=== PATIENT | male | born 1945 | race Caucasian/White ===

== ENCOUNTER 2020-11-16 16:00 | Emergency (ER) | payer MEDICARE, BC ==
[2020-11-16 16:31] VITALS: BP 157/92
[2020-11-16] MEDS ORDERED: Sodium Chloride 0.9% 1,000 ML IV ONE (16:44)
[2020-11-16] MEDS ORDERED: Sodium Chloride 0.9% 10 ML Syringe FLUSH PRN (16:44)
--- NOTE | 2020-11-16 16:52 | EDM.PDOC ---
ED HPI GENERAL MEDICAL PROBLEM - General Chief Complaint: Respiratory Problem Stated Complaint: WEAK/SOB Time Seen by Provider: 11/16/20 16:33 Source of Information: Reports: Patient, RN Notes Reviewed History Limitations: Reports: No Limitations - History of Present Illness INITIAL COMMENTS - FREE TEXT/NARRATIVE: Patient is a 75-year-old male who presents to the ED for the evaluation of his weakness, fatigue, body aches, shortness of breath. He states that this has been going on for 3 days. Patient has multiple symptoms of COVID-19, he went to the [facility] and was seen by JENNY Zavala and was sent here for further evaluation. He states that she said his O2 sats were low there. O2 sats are 98% on room air here, he also notes that he does not have a sense of smell or much for taste as well. He has a history of COPD, and does see Aramis Patel has a primary care provider, and Dr. Dee Sheehan at [facility] is a nib inspector. He notes that it has been very hard to "get his air" for the last few days. He has not had any fevers, chills, but has had a cough, shortness of breath, no nausea/vomiting/diarrhea, he has no chest pain. Generalized Pain Score (Numeric/FACES): 5 - Related Data Allergies Allergy/AdvReac Type Severity Reaction Status Date / Time No Known Allergies Allergy Verified 11/16/20 16:31 Home Meds: Home Meds Finasteride [Proscar] 5 mg PO DAILY 08/28/14 [History] Omeprazole 40 mg PO DAILY 08/28/14 [History] Tamsulosin [Flomax] 0.4 mg PO BIDMEALS 08/28/14 [History] buPROPion [Wellbutrin XL] 150 mg PO BID 08/28/14 [History] Acetaminophen/Caffeine [Excedrin Tension Headache] 2 tab PO PRN 07/22/15 [History] Albuterol [Proair HFA] 2 puff INH DAILY 07/22/15 [History] Fluticasone Propionate [Flovent] 1 puff IH BID PRN 07/22/15 [History] Furosemide [Lasix] 20 mg PO DAILY 07/22/15 [History] Guaifenesin/Pseudoephedrne HCl [Mucinex D ER 600-60 mg Tablet] 1 each PO DAILY 07/22/15 [History] Mometasone/Formoterol [Dulera 200-5 MCG] 2 puff IH DAILY 07/22/15 [History] [place]-3 Fatty Acids [Fish Oil] 300 mg PO BID 07/22/15 [History] Polyethylene Glycol 3350 [MiraLAX] 17 g PO DAILY 07/22/15 [History] Hydroxychloroquine [Plaquenil] 200 mg PO BID 08/17/15 [History] Loratadine/Pseudoephedrine [Alavert D-12 Allergy-Sinus] 5 mg PO DAILY 08/17/15 [History] SUMAtriptan [Imitrex] 50 mg PO ASDIRECTED PRN 08/17/15 [History] allopurinoL [Zyloprim] 30 mg PO DAILY 08/17/15 [History] Meloxicam 15 mg PO DAILY #12 tablet 04/15/16 [Rx] Prednisone [IMW: predniSONE] 20 mg PO BID #20 tab 04/15/16 [Rx] oxyCODONE HCl/Acetaminophen [Percocet 5-325 mg Tablet] 1 - 2 each PO Q4H PRN #20 tablet 04/15/16 [Rx] Past Medical History HEENT History: Reports: Hard of Hearing Other HEENT History: Glasses Cardiovascular History: Reports: High Cholesterol, Hypertension Other Cardiovascular History: swelling to legs, on lasix Respiratory History: Reports: COPD Gastrointestinal History: Reports: GERD Genitourinary History: Reports: BPH, Renal Calculus Other Genitourinary History: Difficulty urinating Musculoskeletal History: Reports: Back Pain, Chronic, Gout, RA Psychiatric History: Reports: Depression Other Psychiatric History: on wellbutrin - Past Surgical History HEENT Surgical History: Reports: Tonsillectomy GI Surgical History: Reports: EGD Other GI Surgeries/Procedures: HEMORRHOIDECTOMY Male Surgical History: Reports: Lithotripsy (ESWL) Social & Family History - Family History Family Medical History: No Pertinent Family History - Tobacco Use Tobacco Use Status *Q: Former Tobacco User Years of Tobacco use: 40 Packs/Tins Daily: 1 Used Tobacco, but Quit: Yes Month/Year Tobacco Last Used: 6 years ago - Caffeine Use Caffeine Use: Reports: Coffee - Recreational Drug Use Recreational Drug Use: No - Living Situation & Occupation Living situation: Reports: , Alone Occupation: Retired ED ROS GENERAL - Review of Systems Review Of Systems: Comprehensive ROS is negative, except as noted in HPI. ED EXAM, GENERAL - Physical Exam Exam: See Below Exam Limited By: No Limitations General Appearance: Alert, WD/WN, No Apparent Distress Respiratory/Chest: No Respiratory Distress, Lungs Clear, Normal Breath Sounds, No Accessory Muscle Use, Chest Non-Tender Cardiovascular: Normal Peripheral Pulses, Regular Rate, Rhythm, No Murmur Extremities: Normal Inspection, Normal Capillary Refill Neurological: Alert, Oriented, Normal Cognition, No Motor/Sensory Deficits Psychiatric: Normal Affect, Normal Mood Skin Exam: Warm, Dry, Intact, Normal Color, No Rash #1 Interpretation EKG Date: 11/16/20 Time: 17:16 Rhythm: NSR Rate (Beats/Min): 88 [place]: Normal P-Wave: Present QRS: Normal ST-T: Normal QT: Normal Comparison: NA - No Prior EKG EKG Interpretation Comments: No obvious ischemia or acute ST changes noted, reviewed by myself and Dr. Navarro. Course - Vital Signs Last Recorded V/S: Last Vital Signs Temp 97.9 F 11/16/20 16:26 Pulse 99 11/16/20 16:26 Resp 21 H 11/16/20 16:26 BP 157/92 H 11/16/20 16:26 Pulse Ox 98 11/16/20 16:26 - Orders/Labs/Meds Orders: Active Orders 24 hr Category Date Time Status EKG Documentation Completion [RC] STAT Care 11/16/20 16:42 Active Peripheral IV Care [RC] . DIRECTED Care 11/16/20 16:44 Active Sodium Chloride 0.9% [Saline Flush] Med 11/16/20 16:44 Active 10 ml FLUSH ASDIRECTED PRN Peripheral IV Insertion Adult [OM.PC] Routine Oth 11/16/20 16:44 Ordered Medication Orders Sodium Chloride (Saline Flush) 10 ml FLUSH ASDIRECTED PRN PRN Reason: Keep Vein Open Last Admin: 11/16/20 17:01 Dose: 10 ml Documented by: COLT Labs: Laboratory Tests 11/16/20 11/16/20 11/16/20 Range/Units 16:49 16:59 16:59 WBC 9.63 H (4.23-9.07) K/mm3 RBC 5.11 (4.63-6.08) M/mm3 Hgb 14.9 (13.7-17.5) gm/dl Hct 46.2 (40.1-51.0) % MCV 90.4 (79.0-92.2) fl MCH 29.2 (25.7-32.2) pg MCHC 32.3 (32.2-35.5) g/dl RDW Std Deviation 53.8 H (35.1-43.9) fL Plt Count 301 (163-337) K/mm3 MPV 10.0 (9.4-12.3) fl Neutrophils % (Manual) 58 (40-60) % Band Neutrophils % 0 (0-10) % Lymphocytes % (Manual) 19 L (20-40) % Atypical Lymphs % 0 % Monocytes % (Manual) 13 H (2-10) % Eosinophils % (Manual) 10 H (0.8-7.0) % Basophils % (Manual) 0 L (0.2-1.2) Platelet Estimate Adequate Plt Morphology Comment Normal RBC Morph Comment Normal PT 11.7 (9.7-12.0) SECONDS INR 1.10 APTT 28.5 (21.7-31.4) SECONDS D-Dimer, Quantitative 0.78 H (0.19-0.50) mg/L Sodium (136-145) mEq/L Potassium (3.5-5.1) mEq/L Chloride (98-107) mEq/L Carbon Dioxide (21-32) mEq/L Anion Gap (5-15) BUN (7-18) mg/dL Creatinine (0.7-1.3) mg/dL Est Cr Clr Drug Dosing Estimated GFR (MDRD) (>60) mL/min BUN/Creatinine Ratio (14-18) Glucose (83-115) mg/dL Calcium (8.5-10.1) mg/dL Magnesium (1.8-2.4) mg/dl Ferritin (26-388) ng/ml Total Bilirubin (0.2-1.0) mg/dL AST (15-37) U/L ALT (16-63) U/L Alkaline Phosphatase (46-116) U/L Lactate Dehydrogenase (85-227) U/L Troponin I (0.00-0.056) ng/mL C-Reactive Protein 5.2 H* (<1.0) mg/dL NT-Pro-B Natriuret Pep (0-450) pg/mL Total Protein (6.4-8.2) g/dl Albumin (3.4-5.0) g/dl Globulin gm/dL Albumin/Globulin Ratio (1-2) Influenza Type A RNA (NEGATIVE) Influenza Type B RNA (NEGATIVE) SARS-CoV-2 RNA (LUIZ) (NEGATIVE) 11/16/20 11/16/20 11/16/20 Range/Units 16:59 16:59 16:59 WBC (4.23-9.07) K/mm3 RBC (4.63-6.08) M/mm3 Hgb (13.7-17.5) gm/dl Hct (40.1-51.0) % MCV (79.0-92.2) fl MCH (25.7-32.2) pg MCHC (32.2-35.5) g/dl RDW Std Deviation (35.1-43.9) fL Plt Count (163-337) K/mm3 MPV (9.4-12.3) fl Neutrophils % (Manual) (40-60) % Band Neutrophils % (0-10) % Lymphocytes % (Manual) (20-40) % Atypical Lymphs % % Monocytes % (Manual) (2-10) % Eosinophils % (Manual) (0.8-7.0) % Basophils % (Manual) (0.2-1.2) Platelet Estimate Plt Morphology Comment RBC Morph Comment PT (9.7-12.0) SECONDS INR APTT (21.7-31.4) SECONDS D-Dimer, Quantitative (0.19-0.50) mg/L Sodium 139 (136-145) mEq/L Potassium 4.0 (3.5-5.1) mEq/L Chloride 103 (98-107) mEq/L Carbon Dioxide 25 (21-32) mEq/L Anion Gap 15.0 (5-15) BUN 13 (7-18) mg/dL Creatinine 1.2 (0.7-1.3) mg/dL Est Cr Clr Drug Dosing TNP Estimated GFR (MDRD) 59 (>60) mL/min BUN/Creatinine Ratio 10.8 L (14-18) Glucose 86 (83-115) mg/dL Calcium 9.1 (8.5-10.1) mg/dL Magnesium 2.1 (1.8-2.4) mg/dl Ferritin 126 (26-388) ng/ml Total Bilirubin 0.2 (0.2-1.0) mg/dL AST 20 (15-37) U/L ALT 24 (16-63) U/L Alkaline Phosphatase 120 H (46-116) U/L Lactate Dehydrogenase 194 (85-227) U/L Troponin I < 0.017 (0.00-0.056) ng/mL C-Reactive Protein (<1.0) mg/dL NT-Pro-B Natriuret Pep 44 (0-450) pg/mL Total Protein 7.0 (6.4-8.2) g/dl Albumin 2.9 L (3.4-5.0) g/dl Globulin 4.1 gm/dL Albumin/Globulin Ratio 0.7 L (1-2) Influenza Type A RNA (NEGATIVE) Influenza Type B RNA (NEGATIVE) SARS-CoV-2 RNA (LUIZ) (NEGATIVE) 11/16/20 Range/Units 16:59 WBC (4.23-9.07) K/mm3 RBC (4.63-6.08) M/mm3 Hgb (13.7-17.5) gm/dl Hct (40.1-51.0) % MCV (79.0-92.2) fl MCH (25.7-32.2) pg MCHC (32.2-35.5) g/dl RDW Std Deviation (35.1-43.9) fL Plt Count (163-337) K/mm3 MPV (9.4-12.3) fl Neutrophils % (Manual) (40-60) % Band Neutrophils % (0-10) % Lymphocytes % (Manual) (20-40) % Atypical Lymphs % % Monocytes % (Manual) (2-10) % Eosinophils % (Manual) (0.8-7.0) % Basophils % (Manual) (0.2-1.2) Platelet Estimate Plt Morphology Comment RBC Morph Comment PT (9.7-12.0) SECONDS INR APTT (21.7-31.4) SECONDS D-Dimer, Quantitative (0.19-0.50) mg/L Sodium (136-145) mEq/L Potassium (3.5-5.1) mEq/L Chloride (98-107) mEq/L Carbon Dioxide (21-32) mEq/L Anion Gap (5-15) BUN (7-18) mg/dL Creatinine (0.7-1.3) mg/dL Est Cr Clr Drug Dosing Estimated GFR (MDRD) (>60) mL/min BUN/Creatinine Ratio (14-18) Glucose (83-115) mg/dL Calcium (8.5-10.1) mg/dL Magnesium (1.8-2.4) mg/dl Ferritin (26-388) ng/ml Total Bilirubin (0.2-1.0) mg/dL AST (15-37) U/L ALT (16-63) U/L Alkaline Phosphatase (46-116) U/L Lactate Dehydrogenase (85-227) U/L Troponin I (0.00-0.056) ng/mL C-Reactive Protein (<1.0) mg/dL NT-Pro-B Natriuret Pep (0-450) pg/mL Total Protein (6.4-8.2) g/dl Albumin (3.4-5.0) g/dl Globulin gm/dL Albumin/Globulin Ratio (1-2) Influenza Type A RNA Negative (NEGATIVE) Influenza Type B RNA Negative (NEGATIVE) SARS-CoV-2 RNA (LUIZ) Negative (NEGATIVE) Meds: Medications Generic Name Dose Route Start Last Admin Trade Name Freq PRN Reason Stop Dose Admin Sodium Chloride 10 ml 11/16/20 16:44 11/16/20 17:01 Saline Flush FLUSH 10 ml ASDIRECTED PRN Administration Keep Vein Open Discontinued Medications Generic Name Dose Route Start Last Admin Trade Name Freq PRN Reason Stop Dose Admin Sodium Chloride 1,000 mls @ 999 mls/hr 11/16/20 16:44 11/16/20 17:00 Normal Saline IV 11/16/20 17:44 999 mls/hr ONETIME ONE Administration - Re-Assessments/Exams Free Text/Narrative Re-Assessment/Exam: 11/16/20 16:51 Patient presents to the ED for his multiple COVID-19 symptoms. We will get labs for evaluation, Covid swab done at today's visit, he would be a candidate for bamlanivimab treatment or Regeneron treatment if the patient's labs are consistent with COVID-19 infection. Patient will be given some IV fluids as well for dehydration. 11/16/20 18:29 Laboratory evaluation demonstrates a modestly elevated white count with no left shift, CRP is elevated at 5, D-dimer at 0.78, all other lab values are essentially unremarkable. Influenza screen and Covid screen are both negative at today's visit, although it is highly likely he has COVID-19, the this test is negative, he cannot get the antibodies at today's visit, I will recommend that he go home quarantine, and get retested either Saturday or Saturday to see if this results in a positive test. Again he is obese, has COPD, and is 75 years old so he has multiple inclusion criteria. Patient's chest x-ray also without acute findings. Departure - Departure Time of Disposition: 18:31 Disposition: Home, Self-Care 01 Condition: Good Clinical Impression: Viral respiratory illness, Sense of smell lost - Discharge Information *PRESCRIPTION DRUG MONITORING PROGRAM REVIEWED*: No *COPY OF PRESCRIPTION DRUG MONITORING REPORT IN PATIENT NAVA: No Instructions: Viral Respiratory Infection, [id number] Referrals: Aramis Patel PA-C [Primary Care Provider] - Forms: ED Department Discharge Additional Instructions: You were seen in the ER today for ongoing and/or worsening respiratory symptoms. Your chest x-ray showed no signs of pneumonia at this time. Your oxygen levels were great at 96% on room air. You do have quite a few symptoms of COVID-19, but the test we did at today's visit was negative. Although your test at today's ER visit was negative, we ask that you self- quarantine and limit your exposure to others; this should be for at least 10 days after you noticed the onset of symptoms. We are highly recommending that you get retested for COVID-19 this 11/18/2020, for re-evaluation. We do have a COVID clinic that would be able to provide you testing at this time. They should be open Saturday, please call [phone] to obtain an appointment for retesting on Saturday. Please try to increase your oral fluid intake, and eat multiple small meals throughout the day, to keep yourself healthy. You need to keep yourself nourished in order to fight off this disease. You can try a liquid diet like gatorade/powerade as well to get your electrolytes. Recommend you obtain some protein shakes like Ensure to keep your nourishment up as well. You may take 500 mg Tylenol every hours 6 hours for pain/fever relief. Do not exceed 4000 mg Tylenol in a 24-hour time span. However, running a fever is your body's natural response to illness, and it allows the body to develop antibodies to disease, we are recommending trying to limit the use of Tylenol as much as possible to allow your body's natural immune response. Please have a family member go to [facility] rehab services, located across the road from [facility] and oyster picker a pulse oximeter to monitor your oxygen levels while you are sick. You will need to use this monitor on your finger, and a restful state for a good minute or 2, and then record that number. If it should be below 90% for a prolonged amount of time, this would be cause for concern to return to the ER for management and possible hospitalization. Please return to the ER at any time if your symptoms change or worsen. Sepsis Event Note (ED) - Evaluation Sepsis Screening Result: No Definite Risk - Focused Exam Vital Signs: Vital Signs Temp Pulse Resp BP Pulse Ox 11/16/20 16:26 97.9 F 99 21 H 157/92 H 98 - My Orders Last 24 Hours: My Active Orders 11/16/20 16:42 EKG Documentation Completion [RC] STAT 11/16/20 16:44 Peripheral IV Care [RC] . DIRECTED Sodium Chloride 0.9% [Saline Flush] 10 ml FLUSH ASDIRECTED PRN Peripheral IV Insertion Adult [OM.PC] Routine - Assessment/Plan Last 24 Hours: My Active Orders 11/16/20 16:42 EKG Documentation Completion [RC] STAT 11/16/20 16:44 Peripheral IV Care [RC] . DIRECTED Sodium Chloride 0.9% [Saline Flush] 10 ml FLUSH ASDIRECTED PRN Peripheral IV Insertion Adult [OM.PC] Routine
[2020-11-16 17:57] LABS: CORONAVIRUS COVID-19 NAA NEGATIVE (NEGATIVE)
--- NOTE | 2020-11-16 18:02 | CR ---
Chest: Portable view of the chest was obtained. Comparison: Prior chest x-ray of 09/16/18. Heart size and mediastinal are normal. Lungs are clear with no acute parenchymal change. Bony structures show nothing definitely acute. Impression: 1. Nothing acute is seen on portable chest x-ray. Diagnostic code #1
[2020-11-16 19:09] VITALS: PULSE 70
== END 2020-11-16 19:02 | disposition home or self-care (01) ==
LOC: JD.ED 16:00
DX: B34.9 Viral infection, unspecified (principal); R43.9 Unspecified disturbances of smell and taste; I10 Essential (primary) hypertension; E78.00 Pure hypercholesterolemia, unspecified; J44.9 Chronic obstructive pulmonary disease, unspecified; K21.9 Gastro-esophageal reflux disease without esophagitis; F32.9 Major depressive disorder, single episode, unspecified; Z87.891 Personal history of nicotine dependence; Z79.899 Other long term (current) drug therapy; Z20.828 Contact with and (suspected) exposure to other viral communicable diseases
CPT/HCPCS: 0240U; 36415; 71045; 80053; 82728; 83615; 83735; 83880; 84484; 85007; 85027; 85379; 85610; 85730; 86140; 93005; 99285; J7030; 93010; 99283

== ENCOUNTER 2021-07-06 06:51 | Day surgery (SDC) | payer MEDICARE, BC ==
[~2021-07-06 06:51] MED LIST: Albuterol 0.083% 2.5 MG/3 ML Neb Soln NEB ONE; Lactated Ringers 1,000 ML IV SCH; Lidocaine 1%/Sod Bicarbonate in NS 8.4% 1 ML Syringe IDERM PRN; Sodium Chloride 0.9% 10 ML Syringe FLUSH PRN
--- NOTE | 2021-07-06 07:21 | PCM.PREANE ---
Preanesthetic Assessment - Anesthesia/Transfusion/Family Hx Anesthesia History: Prior Anesthesia Without Reaction Family History of Anesthesia Reaction: No Transfusion History: No Prior Transfusion(s) - Review of Systems General: Weakness, Fatigue Pulmonary: Shortness of Breath, Cough, Other (copd, cpap at night) Cardiovascular: Dyspnea on Exertion, Other (HTN) Gastrointestinal: Other (GERD) Neurological: Other (RA on steroids, take on mondays) Other: Reports: Depression - Physical Assessment NPO Status Date: 07/06/21 NPO Status Time: 05:30 (sprite soda) ASA Class: 3 Mental Status: Alert & Oriented x3 Airway Class: Mallampati = 2 Dentition: Reports: Edentulous Thyro-Mental Finger Breadths: 3 Mouth Opening Finger Breadths: 3 ROM/Head Extension: Full Lungs: Clear to Auscultation, Normal Respiratory Effort, Other (took inhalers this am on arrival) Cardiovascular: Regular Rate, Regular Rhythm - Allergies Allergies/Adverse Reactions: Allergies Allergy/AdvReac Type Severity Reaction Status Date / Time No Known Allergies Allergy Verified 07/05/21 16:41 - Blood Blood Available: No Product(s) Available: None - Anesthesia Plan Pre-Op Medication Ordered: None - Acknowledgements Anesthesia Type Planned: MAC Pt an Appropriate Candidate for the Planned Anesthesia: Yes Alternatives and Risks of Anesthesia Discussed w Pt/Guardian: Yes Pt/Guardian Understands and Agrees with Anesthesia Plan: Yes PreAnesthesia Questionnaire HEENT History: Reports: Hard of Hearing, Impaired Vision, Other (See Below) Other HEENT History: Glasses, dentures Cardiovascular History: Reports: High Cholesterol, Hypertension, Other (See Below) Other Cardiovascular History: abnormal stress test, chest pain, PAD, PVD Respiratory History: Reports: COPD, Sleep Apnea Gastrointestinal History: Reports: GERD, Other (See Below) Other Gastrointestinal History: LLQ pain, globus sensation, umbilical hernia, hemorrhoids Genitourinary History: Reports: BPH, Renal Calculus Other Genitourinary History: Difficulty urinating [employer]SEMBL[employer] W[employer] GATE History: Reports: None Musculoskeletal History: Reports: Back Pain, Chronic, Gout, Osteoarthritis, RA Other Musculoskeletal History: bilateral plantar fasciitis, right shoulder pain, rotator cuff tear, labrum tear Neurological History: Reports: Headaches, Chronic, Migraines Psychiatric History: Reports: Depression Other Psychiatric History: on wellbutrin Endocrine/Metabolic History: Reports: None Hematologic History: Reports: None Immunologic History: Reports: None Oncologic (Cancer) History: Reports: None Dermatologic History: Reports: None - Infectious Disease History Infectious Disease History: Reports: None - Past Surgical History Head Surgeries/Procedures: Reports: None HEENT Surgical History: Reports: Oral Surgery, Tonsillectomy Cardiovascular Surgical History: Reports: None Respiratory Surgical History: Reports: None GI Surgical History: Reports: EGD Other GI Surgeries/Procedures: HEMORRHOIDECTOMY Male Surgical History: Reports: Lithotripsy (ESWL) Endocrine Surgical History: Reports: None Neurological Surgical History: Reports: None Musculoskeletal Surgical History: Reports: None Oncologic Surgical History: Reports: None Dermatological Surgical History: Reports: None - SUBSTANCE USE Tobacco Use Status *Q: Former Tobacco User Recreational Drug Use History: No - HOME MEDS Home Medications: Home Meds Finasteride [Proscar] 5 mg PO DAILY 08/28/14 [History] Tamsulosin [Flomax] 0.4 mg PO BIDMEALS 08/28/14 [History] buPROPion [Wellbutrin XL] 150 mg PO BID 08/28/14 [History] Albuterol [Proair HFA] 2 puff INH DAILY 07/22/15 [History] Furosemide [Lasix] 20 mg PO DAILY 07/22/15 [History] [place]-3 Fatty Acids [Fish Oil] 600 mg PO DAILY 07/22/15 [History] Hydroxychloroquine [Plaquenil] 200 mg PO DAILY 08/17/15 [History] Loratadine/Pseudoephedrine [Alavert D-12 Allergy-Sinus] 1 tab PO Q12H PRN 08/17/15 [History] SUMAtriptan [Imitrex] 50 mg PO ASDIRECTED PRN 08/17/15 [History] allopurinoL [Zyloprim] 300 mg PO DAILY 08/17/15 [History] Aspirin/Acetaminophen/Caffeine [Excedrin Migraine Caplet] 2 tab PO Q6H PRN 07/05/21 [History] Fluticasone Propionate [Flonase] 1 dose NASBOTH DAILY PRN 07/05/21 [History] Fluticasone/Umeclidin/Vilanter [Trelegy Ellipta 200-62.5-25] 1 puff INH DAILY 07/05/21 [History] L.acidoph,Paracasei, B.lactis [Probiotic] 1 cap PO DAILY 07/05/21 [History] Mupirocin Cream [Bactroban Crm] 1 dose TOP BID 07/05/21 [History] Omeprazole Magnesium [Prilosec Otc] 20 mg PO DAILY 07/05/21 [History] Umeclidinium Brm/Vilanterol Tr [Anoro Ellipta 62.5-25 MCG] 1 puff INH DAILY 07/05/21 [History] amLODIPine Besylate [Norvasc] 5 mg PO DAILY 07/05/21 [History] methocarbamoL [Methocarbamol] 500 - 1,000 mg PO Q8H PRN 07/05/21 [History] polyethylene glycoL 3350 [MiraLAX] 1 dose PO DAILY 07/05/21 [History] predniSONE [Prednisone] 20 mg PO MO 07/05/21 [History] - CURRENT (IN HOUSE) MEDS Current Meds: Current Medications Lactated Ringer's (Ringers, Lactated) 1,000 mls @ 125 mls/hr IV ASDIRECTED ARIANA Stop: 07/06/21 18:00 Lidocaine/Sodium Bicarbonate (Lidocaine 1%/Sod Bicarbonate In Ns 8.4% 1 Ml Syringe) 0.25 ml IDERM ONETIME PRN PRN Reason: Prior to IV Start Stop: 07/06/21 18:00 Sodium Chloride (Sodium Chloride 0.9% 10 Ml Syringe) 10 ml FLUSH ASDIRECTED PRN PRN Reason: Keep Vein Open Stop: 07/06/21 18:00 Discontinued Medications Albuterol (Albuterol 0.083% 2.5 Mg/3 Ml Neb Soln) 2.5 mg NEB ONETIME ONE Stop: 07/06/21 00:02
[2021-07-06] MEDS ORDERED: Propofol 200 MG/20 ML SDV ONE (07:26)
[2021-07-06] MEDS ORDERED: fentaNYL 100 MCG/2 ML SDV ONE (07:26)
[2021-07-06] MEDS ORDERED: Lidocaine 1% 8 ML ONE (08:45)
--- NOTE | 2021-07-06 09:41 | PCM.PRNOTE ---
- Free Text/Narrative Note: Date: 07/06/2021 Procedure: wide local excision of left forearm lesion, diagnostic colonoscopy History: immunosuppressed patient with RA and family history of colon cancer presents with ulcerating skin lesion of left forearm and complaint of rectal bleeding. Surgeon: Tim Vela MD Findings: left forearm lesion was ulcerated and measured1 x 1 cm- removed in a 5 x 3 cm ellipse of full thickness skin. Prep was poor- patient did not complete his prep. Cecum reached. Ascending colon polyp removed with snare. Small subcentimeter polyp just distal to this removed with cold forceps. Extensive sigmoid diverticulosis. Internal hemorrhoids. Detailed Report: The patient was taken to the endoscopy suite and placed supine. Monitored anesthesia care was initiated. A timeout was performed and the lesion on the dorsal aspect of the left mid forearm was prepped with iodine and draped. 10 cc of 1% lidocaine was injected intradermally around the site of the lesion. A longitudinally oriented ellipse was marked to encompass the lesion with gross negative margin. Monopolar energy was used to cut an ellipse of skin measuring 5 x 3 cm encompassing the lesion down to subcutaneous fat. Specimen was excised at the depth of subcutaneous fat and oriented with nylon sutures; one marking the superior aspect which was cut short and one marking the lateral aspect which was cut long. The specimen was placed in formalin and sent to pathology for analysis. The wound was closed in layers using interrupted deep dermal Vicryl sutures and simple interrupted nylon sutures for closure. A sterile dressing was applied. Next, the patient was positioned in left lateral decubitus and colonoscopy was performed. There were small external hemorrhoidal skin tags noted. Digital rectal exam was unremarkable. The colonoscope was inserted and advanced to the cecum. The prep was very poor, and the patient had reported not completing his prep prior to colonoscopy. Though the cecum was visualized, there was lots of stool obscuring visualization of the mucosa and no lesions were identified. The scope was slowly withdrawn and mucosal surfaces carefully inspected. The colon was not properly visualized due to poor prep. Near the hepatic flexure, a approximately 1 cm sessile multinodular polyp was identified. This was excised using hot snare polypectomy technique and successfully retrieved. Just distal to this was a small subcentimeter benign-appearing polyp which was removed entirely with cold forceps. There was extensive diverticular disease in the sigmoid colon. On retroflexion in the rectum, internal hemorrhoids were noted. Air was suctioned from the distal colon and rectum prior to withdrawal of the scope. The patient tolerated the procedure well.
--- NOTE | 2021-07-06 09:45 | PCM48HPAN ---
Post Anesthesia Note - EVALUATION WITHIN 48HRS OF ANESTHETIC Vital Signs in Normal Range: Yes Patient Participated in Evaluation: Yes Respiratory Function Stable: Yes Airway Patent: Yes Cardiovascular Function Stable: Yes Hydration Status Stable: Yes Pain Control Satisfactory: Yes Nausea and Vomiting Control Satisfactory: Yes Mental Status Recovered: Yes Vital Signs: Last Vital Signs Temp 36.4 C 07/06/21 07:15 Pulse 89 07/06/21 07:15 Resp 20 07/06/21 07:15 BP 102/75 07/06/21 07:15 Pulse Ox 96 07/06/21 07:15
[2021-07-06 12:20] VITALS: BP 129/73; PULSE 70
== END 2021-07-06 10:35 | disposition home or self-care (01) ==
LOC: JD.SDS 06:51
PROVIDERS: ATTEND Surgery
DX: D12.2 Benign neoplasm of ascending colon (principal); D12.3 Benign neoplasm of transverse colon; C44.619 Basal cell carcinoma of skin of left upper limb, including shoulder; K57.30 Diverticulosis of large intestine without perforation or abscess without bleeding; K64.4 Residual hemorrhoidal skin tags; K64.8 Other hemorrhoids; I10 Essential (primary) hypertension; J44.9 Chronic obstructive pulmonary disease, unspecified; M10.9 Gout, unspecified; G47.33 Obstructive sleep apnea (adult) (pediatric); I73.9 Peripheral vascular disease, unspecified; F17.210 Nicotine dependence, cigarettes, uncomplicated; E78.00 Pure hypercholesterolemia, unspecified; E66.9 Obesity, unspecified; Z68.35 Body mass index [BMI] 35.0-35.9, adult; Z79.899 Other long term (current) drug therapy; Z86.010 Personal history of colon polyps
CPT/HCPCS: 11606; 45380; 45385; 88305; J2704; J3010; J7120; 00813; 99100; J2370

== ENCOUNTER 2024-06-25 05:06 | Inpatient (IN) | payer MEDICARE, BC ==
[2024-06-25 05:56] LABS: BASOPHILS ABSOLUTE AUTO 0.1 K/mm3 (0.0-0.2); BASOPHILS PERCENT AUTO 0.9 % (0.0-1.0); EOSINOPHILS ABSOLUTE AUTO 0.4 K/mm3 (0.0-0.4); EOSINOPHILS PERCENT AUTO 4.1 % (0.0-6.0); HEMATOCRIT 40.2 % (42.0-52.0); HEMOGLOBIN 13.4 gm/dl (14.0-18.0); LYMPHOCYTES ABSOLUTE AUTO 1.3 K/mm3 (1.0-4.8); LYMPHOCYTES PERCENT AUTO 12.9 % (24.0-44.0); MEAN CORPUSCULAR HEMOGLOBIN 30.6 pg (28.0-32.0); MEAN CORPUSCULAR HGB CONC 33.3 g/dl (32.0-36.0); MEAN CORPUSCULAR VOLUME 91.8 fl (83.0-99.0); MEAN PLATELET VOLUME 11.4 fl (9.4-12.4); MONOCYTES ABSOLUTE AUTO 0.9 K/mm3 (0.0-0.8); MONOCYTES PERCENT AUTO 8.5 % (0.0-8.0); NEUTROPHILS ABSOLUTE AUTO 7.4 K/mm3 (1.8-7.7); NEUTROPHILS PERCENT AUTO 72.6 % (41.0-71.0); PLATELET COUNT,PLT 223 K/mm3 (150-400); RED BLOOD CELL COUNT 4.38 M/mm3 (4.52-5.90); WHITE BLOOD CELL COUNT,WBC 10.15 K/mm3 (3.9-11.3)
[2024-06-25] MEDS ORDERED: Sodium Chloride 0.9% 10 ML Syringe FLUSH PRN (05:56)
[2024-06-25] MEDS: fentaNYL 100 MCG/2 ML SDV IVPUSH ONE (06:06)
[2024-06-25] MEDS: Sodium Chloride 0.9% 500 ML IV ONE (06:06)
[2024-06-25 06:09] LABS: A/G RATIO 0.9 (1-2); ALBUMIN 3.1 g/dl (3.4-5.0); ANION GAP 15.2 (5-15); BILIRUBIN TOTAL 0.5 mg/dL (0.2-1.0); CALCIUM 9.1 mg/dL (8.5-10.1); EST CRCL DRUG DOSING (CG) 69.64 mL/min; POTASSIUM,K 3.2 mEq/L (3.5-5.1); PROTEIN TOTAL,TP 6.4 g/dl (6.4-8.2)
[2024-06-25] MEDS: Iopamidol 755 Mg/ML 100 ML Bottle IVPUSH ONE (06:30)
[2024-06-25 08:56] LABS: CORONAVIRUS COVID-19 NAA NEGATIVE (NEGATIVE); INFLUENZA A NAA NEGATIVE (NEGATIVE); RESPIRATORY SYNCYTIAL VIR NAA NEGATIVE (NEGATIVE)
[2024-06-25 10:37] LABS: BASOPHILS PERCENT AUTO 0.2 % (0.0-1.0); EOSINOPHILS PERCENT AUTO 0.5 % (0.0-6.0); HEMATOCRIT 39.8 % (42.0-52.0); HEMOGLOBIN 13.2 gm/dl (14.0-18.0); IMMATURE GRAN ABSOLUTE AUTO 0.04 K/mm3 (0.00-0.05); IMMATURE GRAN PERCENT AUTO 0.5 % (0.0-0.4); LYMPHOCYTES ABSOLUTE AUTO 0.4 K/mm3 (1.0-4.8); LYMPHOCYTES PERCENT AUTO 4.3 % (24.0-44.0); MEAN CORPUSCULAR HEMOGLOBIN 30.7 pg (28.0-32.0); MEAN CORPUSCULAR HGB CONC 33.2 g/dl (32.0-36.0); MEAN CORPUSCULAR VOLUME 92.6 fl (83.0-99.0); MEAN PLATELET VOLUME 10.8 fl (9.4-12.4); MONOCYTES ABSOLUTE AUTO 0.4 K/mm3 (0.0-0.8); MONOCYTES PERCENT AUTO 4.8 % (0.0-8.0); NEUTROPHILS ABSOLUTE AUTO 7.3 K/mm3 (1.8-7.7); NEUTROPHILS PERCENT AUTO 89.7 % (41.0-71.0); PLATELET COUNT,PLT 192 K/mm3 (150-400); WHITE BLOOD CELL COUNT,WBC 8.11 K/mm3 (3.9-11.3)
[2024-06-25 10:51] LABS: APPEARANCE,URINE CLEAR (Clear); BILIRUBIN,URINE NEGATIVE (Negative); COLOR,URINE YELLOW (Yellow); GLUCOSE,URINE NEGATIVE (Negative); KETONES,URINE NEGATIVE (Negative); LEUKOCYTE ESTERASE,URINE NEGATIVE (Negative); NITRITE,URINE NEGATIVE (Negative); OCCULT BLOOD,URINE NEGATIVE (Negative); PH,URINE 5.5 (5.0-8.0); PROTEIN,URINE NEGATIVE (Negative)
[2024-06-25 11:23] LABS: LACTIC ACID 2.9 mmol/L (0.4-2.0)
[2024-06-25] MEDS: Acetaminophen 325 MG Tab PO ONE ×2 (12:08→16:38)
[2024-06-25] MEDS: Piperacillin/Tazobactam 4.5 GM in Sodium Chloride 0.9% 100 ML IV ONE (12:08)
[2024-06-25] MEDS: Lactated Ringers 1,000 ML IV ONE ×2 (12:09→16:37)
[2024-06-25 17:32] LABS: INR 1.15; PROTHROMBIN TIME 12.1 SECONDS (9.7-12.0)
[2024-06-25 17:33] LABS: PTT,PARTIAL THROMBOPLSTIN TIME 24.8 SECONDS (21.7-31.4)
[2024-06-25] MEDS: Piperacillin/Tazobactam 4.5 GM in Sodium Chloride 0.9% 100 ML IV SCH (18:54)
[2024-06-25] MEDS: Sodium Chloride 0.9% 1,000 ML IV SCH (18:55)
[2024-06-25] MEDS: Albuterol/Ipratropium 3.0-0.5 MG/3 ML Neb Soln NEB ONE (19:43)
[2024-06-25] MEDS: Potassium Chloride 20 MEQ Tab.ER PO ONE (23:27)
[2024-06-26 04:53] LABS: BASOPHILS PERCENT AUTO 0.2 % (0.0-1.0); EOSINOPHILS ABSOLUTE AUTO 0.1 K/mm3 (0.0-0.4); EOSINOPHILS PERCENT AUTO 1.1 % (0.0-6.0); HEMATOCRIT 34.9 % (42.0-52.0); HEMOGLOBIN 11.6 gm/dl (14.0-18.0); IMMATURE GRAN ABSOLUTE AUTO 0.06 K/mm3 (0.00-0.05); IMMATURE GRAN PERCENT AUTO 0.5 % (0.0-0.4); LYMPHOCYTES ABSOLUTE AUTO 0.5 K/mm3 (1.0-4.8); LYMPHOCYTES PERCENT AUTO 4.1 % (24.0-44.0); MEAN CORPUSCULAR HEMOGLOBIN 29.7 pg (28.0-32.0); MEAN CORPUSCULAR HGB CONC 33.2 g/dl (32.0-36.0); MEAN CORPUSCULAR VOLUME 89.5 fl (83.0-99.0); MEAN PLATELET VOLUME 10.9 fl (9.4-12.4); MONOCYTES ABSOLUTE AUTO 1.1 K/mm3 (0.0-0.8); MONOCYTES PERCENT AUTO 8.5 % (0.0-8.0); NEUTROPHILS ABSOLUTE AUTO 10.7 K/mm3 (1.8-7.7); NEUTROPHILS PERCENT AUTO 85.6 % (41.0-71.0); PLATELET COUNT,PLT 183 K/mm3 (150-400); WHITE BLOOD CELL COUNT,WBC 12.56 K/mm3 (3.9-11.3)
[2024-06-26] MEDS: Pantoprazole 40 MG Tab.CR PO SCH (05:03)
[2024-06-26 05:32] LABS: A/G RATIO 0.9 (1-2); ALBUMIN 2.5 g/dl (3.4-5.0); ANION GAP 14.3 (5-15); C-REACTIVE PROTEIN 8.56 mg/dL (<0.30); CALCIUM 8.1 mg/dL (8.5-10.1); CREATININE 0.8 mg/dL (0.7-1.3); EST CRCL DRUG DOSING (CG) 84.62 mL/min; POTASSIUM,K 3.3 mEq/L (3.5-5.1); PROTEIN TOTAL,TP 5.2 g/dl (6.4-8.2)
[2024-06-26] MEDS: Acetaminophen 325 MG Tab PO PRN (09:18)
[2024-06-26] MEDS: Enoxaparin 40 MG/0.4 ML Syringe SUBCUT SCH (09:18)
[2024-06-26] MEDS: Finasteride 5 MG Tab PO SCH (13:13)
[2024-06-26] MEDS: Polyethylene Glycol 3350 Powder 17 GM Packet PO SCH (13:15)
[2024-06-26] MEDS ORDERED: Finasteride 5 MG Tab PO ONE (13:30)
[2024-06-26] MEDS ORDERED: Acetaminophen 325 MG Tab PO PRN ×2 (16:25→17:13)
[2024-06-26] MEDS: Polyethylene Glycol 3350 Powder 17 GM Packet PO ONE (17:07)
[2024-06-26] MEDS: Finasteride 5 MG Tab PO ONE (17:11)
[2024-06-26] MEDS: Tamsulosin 0.4 MG Cap.ER PO SCH (17:11)
[2024-06-26] MEDS: traMADol 50 MG Tab PO PRN (18:09)
[2024-06-26] MEDS: Albuterol/Ipratropium 3.0-0.5 MG/3 ML Neb Soln NEB SCH (21:11)
[2024-06-26] MEDS: Morphine 2 MG/ML SYRINGE IVPUSH PRN (21:15)
[2024-06-26] MEDS: Ondansetron 4 MG Tab.DIS PO PRN (21:18)
[2024-06-27 05:38] LABS: BASOPHILS ABSOLUTE AUTO 0.1 K/mm3 (0.0-0.2); BASOPHILS PERCENT AUTO 0.5 % (0.0-1.0); EOSINOPHILS ABSOLUTE AUTO 0.4 K/mm3 (0.0-0.4); HEMATOCRIT 36.2 % (42.0-52.0); HEMOGLOBIN 12.2 gm/dl (14.0-18.0); IMMATURE GRAN ABSOLUTE AUTO 0.08 K/mm3 (0.00-0.05); IMMATURE GRAN PERCENT AUTO 0.8 % (0.0-0.4); LYMPHOCYTES ABSOLUTE AUTO 0.6 K/mm3 (1.0-4.8); LYMPHOCYTES PERCENT AUTO 5.8 % (24.0-44.0); MEAN CORPUSCULAR HEMOGLOBIN 30.4 pg (28.0-32.0); MEAN CORPUSCULAR HGB CONC 33.7 g/dl (32.0-36.0); MEAN CORPUSCULAR VOLUME 90.3 fl (83.0-99.0); MEAN PLATELET VOLUME 11.3 fl (9.4-12.4); MONOCYTES ABSOLUTE AUTO 1.1 K/mm3 (0.0-0.8); MONOCYTES PERCENT AUTO 10.4 % (0.0-8.0); NEUTROPHILS ABSOLUTE AUTO 8.3 K/mm3 (1.8-7.7); NEUTROPHILS PERCENT AUTO 78.5 % (41.0-71.0); PLATELET COUNT,PLT 180 K/mm3 (150-400); RED BLOOD CELL COUNT 4.01 M/mm3 (4.52-5.90); WHITE BLOOD CELL COUNT,WBC 10.63 K/mm3 (3.9-11.3)
[2024-06-27 05:52] LABS: A/G RATIO 0.7 (1-2); ALANINE AMINOTRANSFERASE,ALT 280 U/L (16-63); ALBUMIN 2.2 g/dl (3.4-5.0); ALKALINE PHOSPHATASE 187 U/L (46-116); ANION GAP 12.3 (5-15); ASPARTATE AMNIOTRANSFERASE,AST 123 U/L (15-37); BLOOD UREA NITROGEN,BUN 5 mg/dL (7-18); BUN/CREATININE RATIO 8.3 (14-18); C-REACTIVE PROTEIN 8.76 mg/dL (<0.30); CALCIUM 8.1 mg/dL (8.5-10.1); CARBON DIOXIDE,CO2 26 mEq/L (21-32); CHLORIDE,CL 105 mEq/L (98-107); CREATININE 0.6 mg/dL (0.7-1.3); EST CRCL DRUG DOSING (CG) 112.82 mL/min; ESTIMATED GFR 98 mL/min (>60); GLUCOSE RANDOM 92 mg/dL (70-99); POTASSIUM,K 3.3 mEq/L (3.5-5.1); PROTEIN TOTAL,TP 5.3 g/dl (6.4-8.2); SODIUM,NA 140 mEq/L (136-145)
[2024-06-27 06:58] LABS: BILIRUBIN DIRECT < 0.05 mg/dl (0.0-0.2)
[2024-06-27] MEDS ORDERED: fentaNYL 250 MCG/5 ML SDV ONE (07:26)
[2024-06-27] MEDS ORDERED: Propofol 200 MG/20 ML SDV ONE (07:26)
[2024-06-27] MEDS ORDERED: Dexamethasone 4 MG/ML 5 ML MDV ONE (07:27)
[2024-06-27] MEDS ORDERED: Rocuronium 50 MG/5 ML Vial ONE (07:27)
[2024-06-27] MEDS ORDERED: Ondansetron 4 MG/2 ML SDV ONE (07:27)
[2024-06-27] MEDS ORDERED: HYDROmorphone 0.5 MG/0.5 ML Syringe IVPUSH PRN (08:42)
[2024-06-27] MEDS ORDERED: Sugammadex Sodium 200 MG/2 ML VIAL IV ONE (09:00)
[2024-06-27] MEDS: Bupivacaine 0.5% 30 ML SDV ONE (09:23)
[2024-06-27] MEDS: EPINEPHrine 1 MG/ML SDV ONE (09:23)
[2024-06-27] MEDS: Ondansetron 4 MG/2 ML SDV IVPUSH PRN (10:53)
[2024-06-27] MEDS: fentaNYL 100 MCG/2 ML SDV IVPUSH PRN (10:54)
[2024-06-27] MEDS: methylPREDNISolone Sodium Succinate 40 MG/1 ML SDV IVPUSH ONE ×2 (12:17→12:28)
[2024-06-27] MEDS: Piperacillin/Tazobactam 4.5 GM in Sodium Chloride 0.9% 100 ML IV ONE (12:24)
[2024-06-28 05:30] LABS: BASOPHILS PERCENT AUTO 0.2 % (0.0-1.0); HEMATOCRIT 36.2 % (42.0-52.0); HEMOGLOBIN 11.8 gm/dl (14.0-18.0); IMMATURE GRAN ABSOLUTE AUTO 0.08 K/mm3 (0.00-0.05); IMMATURE GRAN PERCENT AUTO 0.7 % (0.0-0.4); LYMPHOCYTES ABSOLUTE AUTO 0.6 K/mm3 (1.0-4.8); LYMPHOCYTES PERCENT AUTO 4.9 % (24.0-44.0); MEAN CORPUSCULAR HEMOGLOBIN 29.9 pg (28.0-32.0); MEAN CORPUSCULAR HGB CONC 32.6 g/dl (32.0-36.0); MEAN CORPUSCULAR VOLUME 91.9 fl (83.0-99.0); MEAN PLATELET VOLUME 11.1 fl (9.4-12.4); MONOCYTES ABSOLUTE AUTO 1.1 K/mm3 (0.0-0.8); NEUTROPHILS ABSOLUTE AUTO 10.2 K/mm3 (1.8-7.7); NEUTROPHILS PERCENT AUTO 85.2 % (41.0-71.0); PLATELET COUNT,PLT 189 K/mm3 (150-400); RED BLOOD CELL COUNT 3.94 M/mm3 (4.52-5.90); WHITE BLOOD CELL COUNT,WBC 11.98 K/mm3 (3.9-11.3)
[2024-06-28 06:37] LABS: A/G RATIO 0.7 (1-2); ALBUMIN 2.2 g/dl (3.4-5.0); ANION GAP 12.6 (5-15); BILIRUBIN TOTAL 0.5 mg/dL (0.2-1.0); CALCIUM 8.2 mg/dL (8.5-10.1); CREATININE 0.6 mg/dL (0.7-1.3); EST CRCL DRUG DOSING (CG) 112.82 mL/min; POTASSIUM,K 3.6 mEq/L (3.5-5.1); PROTEIN TOTAL,TP 5.4 g/dl (6.4-8.2)
[2024-06-28] MEDS: Non-Formulary Medication 1 Each (Fluticasone/Umeclidin/Vilanter [Trelegy Ellipta 200-62.5- INH SCH (08:02)
[2024-06-28] MEDS: Tiotropium Bromide 4 GM Inhalation Spray (2.5mcg/1 dose; 10 doses) INH SCH (08:29)
[2024-06-28] MEDS: Formoterol/Mometasone 200-5 MCG 8.8 GM Inhaler INH SCH (08:32)
[2024-06-28] MEDS: Polyethylene Glycol 3350 Powder 17 GM Packet PO SCH (08:58)
[2024-06-28] MEDS: Docusate Sodium 100 MG Cap PO PRN (08:58)
[2024-06-28] MEDS: Enoxaparin 40 MG/0.4 ML Syringe SUBCUT SCH (21:42)
[2024-06-29 06:00] LABS: BASOPHILS ABSOLUTE AUTO 0.1 K/mm3 (0.0-0.2); BASOPHILS PERCENT AUTO 0.6 % (0.0-1.0); EOSINOPHILS ABSOLUTE AUTO 0.5 K/mm3 (0.0-0.4); EOSINOPHILS PERCENT AUTO 4.9 % (0.0-6.0); HEMATOCRIT 35.6 % (42.0-52.0); HEMOGLOBIN 11.7 gm/dl (14.0-18.0); IMMATURE GRAN ABSOLUTE AUTO 0.05 K/mm3 (0.00-0.05); IMMATURE GRAN PERCENT AUTO 0.5 % (0.0-0.4); LYMPHOCYTES ABSOLUTE AUTO 1.2 K/mm3 (1.0-4.8); LYMPHOCYTES PERCENT AUTO 13.1 % (24.0-44.0); MEAN CORPUSCULAR HEMOGLOBIN 30.4 pg (28.0-32.0); MEAN CORPUSCULAR HGB CONC 32.9 g/dl (32.0-36.0); MEAN CORPUSCULAR VOLUME 92.5 fl (83.0-99.0); MEAN PLATELET VOLUME 10.5 fl (9.4-12.4); MONOCYTES PERCENT AUTO 10.4 % (0.0-8.0); NEUTROPHILS ABSOLUTE AUTO 6.6 K/mm3 (1.8-7.7); NEUTROPHILS PERCENT AUTO 70.5 % (41.0-71.0); PLATELET COUNT,PLT 206 K/mm3 (150-400); RED BLOOD CELL COUNT 3.85 M/mm3 (4.52-5.90); WHITE BLOOD CELL COUNT,WBC 9.42 K/mm3 (3.9-11.3)
[2024-06-29 06:01] LABS: ALBUMIN 2.3 g/dl (3.4-5.0); ANION GAP 11.3 (5-15); BUN/CREATININE RATIO 8.3 (14-18); CALCIUM 8.4 mg/dL (8.5-10.1); CREATININE 0.6 mg/dL (0.7-1.3); EST CRCL DRUG DOSING (CG) 112.82 mL/min; POTASSIUM,K 3.3 mEq/L (3.5-5.1); PROTEIN TOTAL,TP 5.3 g/dl (6.4-8.2)
[2024-06-29 06:02] LABS: A/G RATIO 0.8 (1-2); BILIRUBIN TOTAL 0.4 mg/dL (0.2-1.0)
[2024-06-29] MEDS: Formoterol/Mometasone 200-5 MCG 8.8 GM Inhaler INH SCH (08:04)
[2024-06-29 12:47] VITALS: PULSE 89
[2024-06-29] MEDS: predniSONE 20 MG Tab PO SCH (13:53)
[2024-06-29] MEDS: amLODIPine 10 MG Tab PO ONE (15:29)
[2024-06-29 15:32] VITALS: BP 142/64
[2024-06-29] MEDS: Potassium Chloride 20 MEQ Tab.ER PO ONE (15:32)
== END 2024-06-29 15:45 | disposition home or self-care (01) | DRG 854 ==
LOC: JD.ED 05:06 → JD.MS 16:03
PROVIDERS: ADMIT Family Medicine; ATTEND Family Medicine
PROC: 3E03329 Introduction of Other Anti-infective into Peripheral Vein, Percutaneous Approach (ICD-10-PCS; 2024-06-25)
PROC: 0FT44ZZ Resection of Gallbladder, Percutaneous Endoscopic Approach (ICD-10-PCS; principal; 2024-06-27 09:00)
DX: A41.51 Sepsis due to Escherichia coli [E. coli] (principal); R50.9 Fever, unspecified; E87.20 Acidosis, unspecified; K80.12 Calculus of gallbladder with acute and chronic cholecystitis without obstruction; J44.1 Chronic obstructive pulmonary disease with (acute) exacerbation; N13.8 Other obstructive and reflux uropathy; K83.09 Other cholangitis; I10 Essential (primary) hypertension; J43.9 Emphysema, unspecified; E78.00 Pure hypercholesterolemia, unspecified; R65.20 Severe sepsis without septic shock; I73.9 Peripheral vascular disease, unspecified; K21.9 Gastro-esophageal reflux disease without esophagitis; M06.9 Rheumatoid arthritis, unspecified; M10.9 Gout, unspecified; G89.29 Other chronic pain; M54.9 Dorsalgia, unspecified; G47.30 Sleep apnea, unspecified; M25.511 Pain in right shoulder; N40.1 Benign prostatic hyperplasia with lower urinary tract symptoms; H91.90 Unspecified hearing loss, unspecified ear; H54.7 Unspecified visual loss; F32.A Depression, unspecified; R07.89 Other chest pain; R09.02 Hypoxemia; R74.01 Elevation of levels of liver transaminase levels; Z90.89 Acquired absence of other organs; Z98.890 Other specified postprocedural states; Z79.82 Long term (current) use of aspirin; Z79.899 Other long term (current) drug therapy; Z87.442 Personal history of urinary calculi
CPT/HCPCS: 0241U; 36415; 71045; 71275; 74177; 76705; 80053; 81003; 82248; 83605; 83690; 83735; 83880; 84484; 85025; 85610; 85652; 85730; 86140; 87040; 87077; 87154; 87186; 87641; 93005; 94640; 94761; 96361; 96365; 96375; 97161; 99285; 93010; 99284; A9270-GY; J0171; J0665; J1100; J1650; J2270; J2405; J2543; J2704; J2919; J3010; J3490; J7030; J7120; J7512; J7620-GY; Q9967

== ENCOUNTER 2024-11-27 11:46 | Inpatient (IN) | payer MEDICARE, BC ==
[2024-11-27] MEDS ORDERED: Sodium Chloride 0.9% 10 ML Syringe FLUSH PRN (12:13)
[2024-11-27] MEDS ORDERED: Naloxone 0.4 MG/ML SDV IVPUSH PRN (12:14)
[2024-11-27] MEDS: Sodium Chloride 0.9% 1,000 ML IV SCH (13:05)
[2024-11-27] MEDS: HYDROmorphone 0.5 MG/0.5 ML Syringe IVPUSH ONE ×2 (13:06→15:28)
[2024-11-27] MEDS: Ondansetron 4 MG/2 ML SDV IVPUSH ONE (17:00)
[2024-11-27] MEDS ORDERED: Polyethylene Glycol 3350 Powder 17 GM Packet PO PRN (18:31)
[2024-11-27] MEDS: Acetaminophen 325 MG Tab PO SCH (20:24)
[2024-11-27] MEDS: Melatonin 3 MG Tab PO PRN (20:49)
[2024-11-27] MEDS: oxyCODONE 5 MG Tab PO PRN (23:10)
[2024-11-27] MEDS: Tamsulosin 0.4 MG Cap.ER PO SCH (23:16)
[2024-11-27] MEDS: risperiDONE 1 MG Tab PO SCH (23:16)
[2024-11-27] MEDS: Hydroxychloroquine 200 MG Tab PO SCH (23:16)
[2024-11-27] MEDS: buPROPion 150 MG Tab.SR PO SCH (23:16)
[2024-11-28 05:38] LABS: ALBUMIN 2.7 g/dl (3.4-5.0); ANION GAP 13.7 (5-15); BILIRUBIN TOTAL 0.3 mg/dL (0.2-1.0); CALCIUM 8.3 mg/dL (8.5-10.1); CREATININE 0.8 mg/dL (0.7-1.3); EST CRCL DRUG DOSING (CG) 71.25 mL/min; POTASSIUM,K 3.7 mEq/L (3.5-5.1); PROTEIN TOTAL,TP 5.4 g/dl (6.4-8.2)
[2024-11-28] MEDS: Furosemide 20 MG Tab PO SCH (08:33)
[2024-11-28] MEDS: Finasteride 5 MG Tab PO SCH (08:33)
[2024-11-28] MEDS: amLODIPine 10 MG Tab PO SCH (08:34)
[2024-11-28] MEDS: Enoxaparin 40 MG/0.4 ML Syringe SUBCUT SCH (08:35)
[2024-11-29] MEDS: Furosemide 20 MG/2 ML VIAL IVPUSH ONE (03:30)
[2024-11-29] MEDS ORDERED: amLODIPine 10 MG Tab PO SCH (09:00)
[2024-11-29] MEDS ORDERED: Non-Formulary Medication 1 Each (Fluticasone/Umeclidin/Vilanter [Trelegy Ellipta 100-62.5- INH SCH (09:00)
[2024-11-29] MEDS: Non-Formulary Medication 1 Each (Fluticasone/Umeclidin/Vilanter [Trelegy Ellipta 200-62.5- INH SCH (09:06)
[2024-11-29] MEDS: Tiotropium Bromide 4 GM Inhalation Spray (2.5mcg/1 dose; 10 doses) INH SCH (09:37)
[2024-11-29] MEDS: Formoterol/Mometasone 200-5 MCG 8.8 GM Inhaler INH SCH (10:58)
[2024-11-30] MEDS ORDERED: Ondansetron 4 MG/2 ML SDV IV PRN (08:49)
[2024-11-30] MEDS: Folic Acid 1 MG Tab PO SCH (09:46)
[2024-11-30] MEDS: Docusate Sodium 100 MG Cap PO SCH (09:46)
[2024-11-30] MEDS: Pantoprazole 40 MG Tab.CR PO SCH (09:46)
[2024-11-30] MEDS: predniSONE 20 MG Tab PO SCH (09:48)
[2024-12-01] MEDS: Tiotropium Bromide 4 GM Inhalation Spray (2.5mcg/1 dose; 10 doses) INH SCH (06:39)
[2024-12-01 12:43] LABS: BASOPHILS PERCENT AUTO 0.3 % (0.0-1.0); EOSINOPHILS ABSOLUTE AUTO 0.2 K/mm3 (0.0-0.4); EOSINOPHILS PERCENT AUTO 1.3 % (0.0-6.0); HEMATOCRIT 36.4 % (42.0-52.0); HEMOGLOBIN 12.3 gm/dl (14.0-18.0); IMMATURE GRAN ABSOLUTE AUTO 0.06 K/mm3 (0.00-0.05); IMMATURE GRAN PERCENT AUTO 0.5 % (0.0-0.4); LYMPHOCYTES ABSOLUTE AUTO 1.3 K/mm3 (1.0-4.8); MEAN CORPUSCULAR HEMOGLOBIN 30.8 pg (28.0-32.0); MEAN CORPUSCULAR HGB CONC 33.8 g/dl (32.0-36.0); MEAN PLATELET VOLUME 11.2 fl (9.4-12.4); MONOCYTES PERCENT AUTO 7.5 % (0.0-8.0); NEUTROPHILS ABSOLUTE AUTO 10.2 K/mm3 (1.8-7.7); NEUTROPHILS PERCENT AUTO 80.4 % (41.0-71.0); PLATELET COUNT,PLT 225 K/mm3 (150-400); WHITE BLOOD CELL COUNT,WBC 12.62 K/mm3 (3.9-11.3)
[2024-12-01 12:56] LABS: ANION GAP 13.3 (5-15); BUN/CREATININE RATIO 16.3 (14-18); CREATININE 0.8 mg/dL (0.7-1.3); EST CRCL DRUG DOSING (CG) 71.25 mL/min; MAGNESIUM 2.2 mg/dL (1.8-2.4); POTASSIUM,K 3.3 mEq/L (3.5-5.1)
[2024-12-01 13:09] VITALS: BP 115/65; PULSE 87
[2024-12-01] MEDS: Cyclobenzaprine 10 MG Tab PO PRN (13:56)
[2024-12-01] MEDS: Potassium Chloride 20 MEQ Tab.ER PO ONE (13:58)
== END 2024-12-01 14:22 | DRG 563 ==
LOC: JD.ED 11:46 → JD.MS 18:31
PROVIDERS: ADMIT Family Medicine; ATTEND Family Medicine
DX: S82.852A Displaced trimalleolar fracture of left lower leg, initial encounter for closed fracture (principal); J43.9 Emphysema, unspecified; E78.00 Pure hypercholesterolemia, unspecified; J44.9 Chronic obstructive pulmonary disease, unspecified; I10 Essential (primary) hypertension; G47.30 Sleep apnea, unspecified; K21.9 Gastro-esophageal reflux disease without esophagitis; N40.0 Benign prostatic hyperplasia without lower urinary tract symptoms; M10.9 Gout, unspecified; M06.9 Rheumatoid arthritis, unspecified; M19.90 Unspecified osteoarthritis, unspecified site; G43.909 Migraine, unspecified, not intractable, without status migrainosus; F32.A Depression, unspecified; H91.90 Unspecified hearing loss, unspecified ear; H54.7 Unspecified visual loss; Z98.890 Other specified postprocedural states; Z90.89 Acquired absence of other organs; Z79.899 Other long term (current) drug therapy; W00.0XXA Fall on same level due to ice and snow, initial encounter
CPT/HCPCS: 29515; 36415; 71045; 71045-26; 73590-26-LT; 73590-LT; 73610-26-LT; 73610-LT; 80048; 80053; 83735; 85025; 94640; 94760; 94761; 96374; 96375; 96376; 97110-GP; 97162-GP; 97530-GP; 99285-25; A9270-GY; J1650; J1940; J2405; J7030; J7512